=== PATIENT | male | born 1950 | race Caucasian/White ===

== ENCOUNTER → 2018-07-29 | Outpatient (CLI) | payer MEDICARE, OTHER ==
--- NOTE | 2018-07-29 12:24 | RAD ---
Ultrasound abdomen complete 07/29/2018 Clinical indications: Gastric pain. COMPARISON: None. FINDINGS: Visualized upper abdominal aorta and IVC unremarkable. Visualized proximal pancreas unremarkable. Gallbladder is normal in size and configuration without wall thickening, pericholecystic fluid or cholelithiasis. No intra or extrahepatic biliary ductal dilatation with the common bile duct measuring 3 mm. The liver is homogeneous in echotexture without discrete mass or fluid collection in the visualized portions. Right kidney measures 10.4 cm in length without hydronephrosis or abnormal perinephric fluid collection. The left kidney measures 10.5 cm in length without hydronephrosis or abnormal perinephric fluid collection. Spleen is normal in size measuring 10.3 cm in length. IMPRESSION: Unremarkable abdominal sonogram. Electronically signed by: Curtis Zhao MD (07/29/2018 12:20 PM) [facility]
== END | disposition home or self-care (01) ==
LOC: US 09:15
PROVIDERS: ATTEND Internal Medicine Gastroenterology
DX: R10.13 Epigastric pain (principal)
CPT/HCPCS: 76700

== ENCOUNTER 2018-08-06 02:14 | Inpatient (IN) | payer MEDICARE, OTHER ==
[~2018-08-06] VITALS: Ht 182.9 cm; Wt 101.7 kg
[2018-08-06] MEDS ORDERED: ASPIRIN 81 MG TAB.CHEW PO ONE (03:00)
--- NOTE | 2018-08-06 03:07 | PHYS DOC ---
Past History Past Medical History: GERD, Hypertension, Other Past Surgical History: Knee Replacement, Other Alcohol Use: Occasionally Drug Use: None Adult General Chief Complaint Chief Complaint: CHEST PAIN HPI HPI 68-year-old male presents via EMS with epigastric pain. The patient has had intermittent episodes of sharp epigastric pain for several weeks. He presents tonight because he started of epigastric pain after drinking some water yesterday around 2 PM. The pain has not stopped since and is currently 8/10 and sharp. Patient has had multiple esophageal dilations, the latest one in March. He is also reported of a hiatal hernia for which he takes Protonix. Patient was seen at [facility] a couple weeks ago and his cardiac workup at that time was negative. No definitive diagnosis for his pain was found but it improved after pain medication and did not come back. Patient denies shortness of breath or diaphoresis. He has a feeling of fullness and does not want to eat. He denies fever or chills. Review of Systems Review of Systems Constitutional: Denies fever or chills [] Eyes: Denies change in visual acuity, redness, or eye pain [] HENT: Denies nasal congestion or sore throat [] Respiratory: Denies cough or shortness of breath [] Cardiovascular: No additional information not addressed in HPI [] GI: Epigastric pain. Denies nausea, vomiting, bloody stools or diarrhea [] : Denies dysuria or hematuria [] Musculoskeletal: Denies back pain or joint pain [] Integument: Denies rash or skin lesions [] Neurologic: Denies headache, focal weakness or sensory changes [] Endocrine: Denies polyuria or polydipsia [] All other systems were reviewed and found to be within normal limits, except as documented in this note. Current Medications Current Medications Current Medications Medications (Trade) Dose Ordered Sig/Maddie Start Time Stop Time Status Last Admin Dose Admin Aspirin (Children'S Aspirin) 324 mg 1X ONCE 08/06/18 03:00 08/06/18 03:00 DC Multi-Ingredient Mouthwash/Gargle (Gi Cocktail) 20 ml 1X ONCE 08/06/18 03:00 08/06/18 03:01 UNV Ondansetron HCl (Zofran) 4 mg 1X ONCE 08/06/18 03:00 08/06/18 03:01 UNV Allergies Allergies Allergies Coded Allergies Type Severity Reaction Last Updated Verified No Known Drug Allergies 08/06/18 No Physical Exam Physical Exam Constitutional: Well developed, well nourished, no acute distress, non-toxic appearance. [] HENT: Normocephalic, atraumatic, bilateral external ears normal, oropharynx moist, no oral exudates, nose normal. [] Eyes: PERRLA, EOMI, conjunctiva normal, no discharge. [] Neck: Normal range of motion, no tenderness, supple, no stridor. [] Cardiovascular:Heart rate regular rhythm, no murmur [] Lungs & Thorax: Bilateral breath sounds clear to auscultation [] Abdomen: Bowel sounds normal, soft, moderate epigastric tenderness, no masses, no pulsatile masses. [] Skin: Warm, dry, no erythema, no rash. [] Back: No tenderness, no CVA tenderness. [] Extremities: No tenderness, no cyanosis, no clubbing, ROM intact, no edema. [] Neurologic: Alert and oriented X 3, normal motor function, normal sensory function, no focal deficits noted. [] Psychologic: Affect normal, judgement normal, mood normal. [] Current Patient Data Vital Signs Vital Signs Date Time Temp Pulse Resp B/P (MAP) Pulse Ox O2 Delivery O2 Flow Rate FiO2 08/06/18 02:24 98.2 72 18 97 Room Air EKG EKG Sinus rhythm, rate 72, normal axis, no ST elevations or depressions.[] Radiology/Procedures Radiology/Procedures [] Impressions: EXAM: CHEST 1 VIEW. HISTORY: Chest pain. COMPARISON: None. FINDINGS: A frontal view of the chest is obtained. There are no confluent infiltrates. There is no pneumothorax or pleural effusion. The heart is not enlarged. There is a large hiatal hernia. IMPRESSION: 1. Large hiatal hernia. No confluent infiltrates. Electronically signed by: Valeria Pemberton MD (08/06/2018 3:44 AM) [facility] DICTATED AND SIGNED BY: KAYLEE PEMBERTON MD DATE: 08/06/18 0326 CC: FRANCK OKEEFE DO; JEF CATALAN MD EXAM: CT ABDOMEN/PELVIS WITH CONTRAST. HISTORY: Epigastric pain, hiatal hernia. TECHNIQUE: Computed tomography of the abdomen and pelvis was performed after the intravenous administration of iodinated contrast. COMPARISON: None. FINDINGS: Lung windows through the visualized portions of the bases reveal mild atelectasis. There are atherosclerotic calcifications of the coronary arteries. Bone windows reveal no suspicious lesions. There is a large and paraesophageal hiatal hernia. There is associated gastric volvulus. The intermediate portion of the stomach below the diaphragm is moderately distended. There is no pneumatosis. The liver, gallbladder, spleen, adrenal glands, pancreas and kidneys are unremarkable. There are no pathologically enlarged lymph nodes. Left colonic diverticulosis is mild. The appendix is not inflamed. There is no small bowel obstruction. There are multiple small bladder diverticula and some bladder wall thickening. The prostate is mildly enlarged. IMPRESSION: 1. Paraesophageal hiatal hernia. There is gastric volvulus and the intermediate portion of the stomach is dilated consistent with a component of obstruction. Ongoing management is recommended. 2. Bladder wall thickening. Correlate with urinalysis. Multiple small bladder diverticula. These findings were called to Dr. Okeefe by Ed Pemberton on 08/06/2018 at 4:57 AM. *One or more of the following individualized dose reduction techniques were utilized for this examination: 1. Automated exposure control. 2. Adjustment of the mA and/or kV according to patient size. 3. Use of iterative reconstruction technique. Electronically signed by: Valeria Pemberton MD (08/06/2018 4:57 AM) [facility] DICTATED AND SIGNED BY: KAYLEE PEMBERTON MD DATE: 08/06/18 0423 CC: FRANCK OKEEFE DO; RAUL GAMBOA MD; PCP,UNKNOWN Course & Med Decision Making Course & Med Decision Making Pertinent Labs and Imaging studies reviewed. (See chart for details) The patient had an abdominal ultrasound on July 29 at this facility that was unremarkable. The patient's troponin is elevated at 0.07. His EKG does not show elevations. I discussed with the patient that he should be admitted for rule out and possible stress test tomorrow. His HEART score is 5. He is in agreement with this plan. After the patient was admitted, radiology called and states that the patient's hiatal hernia is quite severe and can be classified as gastric volvulus. At some point should be evaluated by a surgeon. Given his current cardiac risk, he will need to be ruled out and have a more complete cardiac workup prior to consideration of surgery. I discussed the patient with Dr. Gamboa and he has accepted the patient for admission. [] Dragon Disclaimer Dragon Disclaimer This electronic medical record was generated, in whole or in part, using a voice recognition dictation system. Departure Departure: Impression: Primary Impression: Chest pain Additional Impressions: Elevated troponin I level Hiatal hernia Disposition: ADMITTED INPATIENT Condition: STABLE Referrals: JEF CATALAN MD (PCP) Problem Qualifiers Primary Impression: Chest pain Chest pain type: precordial pain Qualified Codes: R07.2 - Precordial pain FRANCK OKEEFE DO Aug 06, 2018 03:06
[2018-08-06] MEDS ORDERED: LIDO:MAALOX 1:1 20 ML SINGLE DOSE. PO ONE (03:15)
[2018-08-06] MEDS ORDERED: ONDANSETRON PF 4 MG/2 ML VIAL. IV ONE (03:15)
[2018-08-06 03:24] LABS: BASO # 0.1 x10^3/uL (0.0-0.2); BASO % 1 % (0-3); EOS # 0.2 x10^3/uL (0.0-0.7); EOS % 2 % (0-3); HEMATOCRIT 45.2 % (39.0-53.0); HEMOGLOBIN 15.1 g/dL (13.0-17.5); LYMPH # 2.2 x10^3/uL (1.0-4.8); LYMPH % 23 % (24-48); MEAN CORPUSCULAR HEMOGLOBIN 29 pg (25-35); MEAN CORPUSCULAR HGB CONC 33 g/dL (31-37); MEAN CORPUSCULAR VOLUME 86 fL (79-100); MONO # 0.7 x10^3/uL (0.0-1.1); MONO % 7 % (0-9); NEUT # 6.4 x10^3uL (1.8-7.7); NEUT % 67 % (31-73); PLATELET COUNT 334 x10^3/uL (140-400); RED BLOOD COUNT 5.24 x10^6/uL (4.30-5.70); WHITE BLOOD COUNT 9.6 x10^3/uL (4.0-11.0)
[2018-08-06] MEDS ORDERED: IOHEXOL 300 MG/ML 75 ML VIAL. IV ONE (03:30)
[2018-08-06] MEDS ORDERED: CONTRAST GIVEN MC PRN (03:45)
[2018-08-06 03:48] LABS: ALBUMIN 3.8 g/dL (3.4-5.0); CALCIUM 9.6 mg/dL (8.5-10.1); CREATININE 1.1 mg/dL (0.7-1.3); GFR 66.6; POTASSIUM 4.3 mmol/L (3.5-5.1); TOTAL BILIRUBIN 1.1 mg/dL (0.2-1.0); TOTAL PROTEIN 7.5 g/dL (6.4-8.2)
--- NOTE | 2018-08-06 03:49 | RAD ---
EXAM: CHEST 1 VIEW. HISTORY: Chest pain. COMPARISON: None. FINDINGS: A frontal view of the chest is obtained. There are no confluent infiltrates. There is no pneumothorax or pleural effusion. The heart is not enlarged. There is a large hiatal hernia. IMPRESSION: 1. Large hiatal hernia. No confluent infiltrates. Electronically signed by: Valeria Pemberton MD (08/06/2018 3:44 AM) [facility]
[2018-08-06] MEDS ORDERED: NITROGLYCERIN SUBLINGUAL 0.4 MG BOTTLE OF 25. SL PRN (04:15)
[2018-08-06] MEDS ORDERED: ONDANSETRON PF 4 MG/2 ML VIAL. IV PRN (04:15)
[2018-08-06] MEDS ORDERED: NITROGLYCERIN SUBLINGUAL 0.4 MG BOTTLE OF 25. SL ONE ×2 (04:15→04:22)
[2018-08-06] MEDS ORDERED: ASPI-864 PO (04:43)
[2018-08-06] MEDS ORDERED: PANT40TA5 PO (04:43)
[2018-08-06] MEDS ORDERED: CALC1TAB PO (04:43)
[2018-08-06] MEDS ORDERED: ROSU40TA4 PO (04:43)
[2018-08-06] MEDS ORDERED: TELM40TA4 PO (04:43)
--- NOTE | 2018-08-06 05:02 | RAD ---
EXAM: CT ABDOMEN/PELVIS WITH CONTRAST. HISTORY: Epigastric pain, hiatal hernia. TECHNIQUE: Computed tomography of the abdomen and pelvis was performed after the intravenous administration of iodinated contrast. COMPARISON: None. FINDINGS: Lung windows through the visualized portions of the bases reveal mild atelectasis. There are atherosclerotic calcifications of the coronary arteries. Bone windows reveal no suspicious lesions. There is a large and paraesophageal hiatal hernia. There is associated gastric volvulus. The intermediate portion of the stomach below the diaphragm is moderately distended. There is no pneumatosis. The liver, gallbladder, spleen, adrenal glands, pancreas and kidneys are unremarkable. There are no pathologically enlarged lymph nodes. Left colonic diverticulosis is mild. The appendix is not inflamed. There is no small bowel obstruction. There are multiple small bladder diverticula and some bladder wall thickening. The prostate is mildly enlarged. IMPRESSION: 1. Paraesophageal hiatal hernia. There is gastric volvulus and the intermediate portion of the stomach is dilated consistent with a component of obstruction. Ongoing management is recommended. 2. Bladder wall thickening. Correlate with urinalysis. Multiple small bladder diverticula. These findings were called to Dr. Yadav by Ed Pemberton on 08/06/2018 at 4:57 AM. *One or more of the following individualized dose reduction techniques were utilized for this examination: 1. Automated exposure control. 2. Adjustment of the mA and/or kV according to patient size. 3. Use of iterative reconstruction technique. Electronically signed by: Valeria Pemberton MD (08/06/2018 4:57 AM) [facility]
[2018-08-06 05:05] VITALS: BP 145/83
[2018-08-06] MEDS ORDERED: MULT1TAB52 PO (05:26)
--- NOTE | 2018-08-06 10:29 | PDOC2 ---
CONSULT Date of Admission DATE: 08/06/18 TIME: 10:28 Reason for Consult: elevated trop Problem List Problems Medical Problems: (1) Chest pain Status: Acute (2) Elevated troponin I level Status: Acute (3) Hiatal hernia Status: Acute History of Present Illness Mr Smyth is a 68 year old male who presented to the ED with complaints of epigastric pain. He has experienced sharp stabbing pain in the epigastric area off an on for several weeks. Yesterday he reports taking a drink of water and having sudden onset of severe stabbing pain. He does have a history of GERD and prior esophageal strictures and was recently evaluated by cardiology at though he did not undergo stress testing or echocardiography. He does have a history of stress testing and cardiac cath with reportedly moderate coronary disease. He was found to have haital hernia with gastric vovulus and admitted . Consult was called due to elevated troponin. The patient reports no complaints of chest pain. he does report some dyspnea on exertion with stairs. He works out at a gym 3 time weekly without issues. He reports he has reduced his cardio due to knee pain. He denies any congestive symptoms, claudication or syncope. He reports some neuropathy in his feet and that his toes occasionally become bluish in color but he underwent testing fo PAD at which was normal. He reports some bradycardia but denies any symptoms. He did have recurrent epigastric discomfort this am after breakfast but resolved with analgesics and currently comfortable. Past Medical History moderate coronary disease by prior cardiac cath per patient report hiatal hernia esophageal strictures s/p dilatations gerd hypertension hyperlipidemia osteoarthritis Musculoskeletal: Stiffness Past Surgical History: Tonsillectomy, Other (right foot/toe, right knee, left rotater cuff) Family History: Cancer, Coronary Artery Disease, Migranes Social History non smoker, no significant ETOH, no illicit drugs Current Medications Current Medications Aspirin (Children'S Aspirin) 324 mg 1X ONCE PO ; Start 08/06/18 at 03:00; Stop 08/06/18 at 03:00; Status DC Multi-Ingredient Mouthwash/Gargle (Gi Cocktail) 20 ml 1X ONCE PO Last administered on 08/06/18at 03:16; Start 08/06/18 at 03:15; Stop 08/06/18 at 03:16; Status DC Ondansetron HCl (Zofran) 4 mg 1X ONCE IV Last administered on 08/06/18at 03:16; Start 08/06/18 at 03:15; Stop 08/06/18 at 03:16; Status DC Iohexol (Omnipaque 300 Mg/ml) 75 ml 1X ONCE IV Last administered on 08/06/18at 03:53; Start 08/06/18 at 03:30; Stop 08/06/18 at 03:31; Status DC Info (Do NOT chart on this entry -- for MONITORING) 1 each PRN DAILY PRN MC SEE COMMENTS; Start 08/06/18 at 03:45; Stop 08/08/18 at 03:44 Nitroglycerin (Nitrostat) 0.4 mg 1X ONCE SL Last administered on 08/06/18at 04: 30; Start 08/06/18 at 04:15; Stop 08/06/18 at 04:32; Status DC Fentanyl Citrate (Fentanyl 2ml Vial) 75 mcg 1X ONCE IV Last administered on 08/06/18at 04:30; Start 08/06/18 at 04:15; Stop 08/06/18 at 04:32; Status DC Ondansetron HCl (Zofran) 4 mg PRN Q4HRS PRN IV NAUSEA/VOMITING; Start 08/06/18 at 04:15; Stop 08/07/18 at 04:14 Fentanyl Citrate (Fentanyl 2ml Vial) 50 mcg PRN Q2HR PRN IV PAIN; Start at 04:15; Stop 08/07/18 at 04:14 Nitroglycerin (Nitrostat) 0.4 mg PRN Q5MIN PRN SL CHEST PAIN; Start 08/06/18 at 04:15; Stop 08/07/18 at 04:14 Active Scripts Active Reported Multivitamins (Multivitamin) 1 Each Tablet 1 Tab PO DAILY LAST DOSE GIVEN: DATE: TIME: NEXT DOSE DUE: DATE: TIME: Oyster Shell 500 Mg + Vit D Tb (Calcium Carbonate/Vitamin D3) 1 Each Tablet 1 Tab PO BID LAST DOSE GIVEN: DATE: TIME: NEXT DOSE DUE: DATE: TIME: Crestor (Rosuvastatin Calcium) 40 Mg Tablet 40 Mg PO HS LAST DOSE GIVEN: DATE: TIME: NEXT DOSE DUE: DATE: TIME: Pantoprazole Sodium 40 Mg Tablet.dr 40 Mg PO DAILY LAST DOSE GIVEN: DATE: TIME: NEXT DOSE DUE: DATE: TIME: Telmisartan 40 Mg Tablet 40 Mg PO HS LAST DOSE GIVEN: DATE: TIME: NEXT DOSE DUE: DATE: TIME: Lo-Dose Aspirin Ec (Aspirin) 81 Mg Tablet.dr 81 Mg PO DAILY LAST DOSE GIVEN: DATE: TIME: NEXT DOSE DUE: DATE: TIME: Allergies: Coded Allergies: No Known Drug Allergies (Unverified , 08/06/18) Review of System as per HPI or negative General: Alert, Oriented X3, Cooperative, No acute distress HEENT: Atraumatic, EOMI, Mucous membr. moist/pink Lungs: Clear to auscultation, Normal air movement Heart: Regular rate, Normal S1, Normal S2, Other (no obvious murmurs, no gallops, clicks or rubs) Abdomen: Normal bowel sounds, Soft, No tenderness Extremities: No cyanosis, No edema, Normal pulses Neuro: Normal speech, Strength at 5/5 X4 ext Psych/Mental Status: Mental status NL, Mood NL VITALS Vital Signs Date Time Temp Pulse Resp B/P (MAP) Pulse Ox O2 Delivery O2 Flow Rate FiO2 08/06/18 07:55 Room Air 08/06/18 05:05 97.7 61 20 145/83 (103) 97 Labs Laboratory Tests Test 08/06/18 02:20 08/06/18 07:00 White Blood Count 9.6 x10^3/uL (4.0-11.0) Red Blood Count 5.24 x10^6/uL (4.30-5.70) Hemoglobin 15.1 g/dL (13.0-17.5) Hematocrit 45.2 % (39.0-53.0) Mean Corpuscular Volume 86 fL (79-100) Mean Corpuscular Hemoglobin 29 pg (25-35) Mean Corpuscular Hemoglobin Concent 33 g/dL (31-37) Red Cell Distribution Width 14.0 % (11.5-14.5) Platelet Count 334 x10^3/uL (140-400) Neutrophils (%) (Auto) 67 % (31-73) Lymphocytes (%) (Auto) 23 % (24-48) Monocytes (%) (Auto) 7 % (0-9) Eosinophils (%) (Auto) 2 % (0-3) Basophils (%) (Auto) 1 % (0-3) Neutrophils # (Auto) 6.4 x10^3uL (1.8-7.7) Lymphocytes # (Auto) 2.2 x10^3/uL (1.0-4.8) Monocytes # (Auto) 0.7 x10^3/uL (0.0-1.1) Eosinophils # (Auto) 0.2 x10^3/uL (0.0-0.7) Basophils # (Auto) 0.1 x10^3/uL (0.0-0.2) Sodium Level 140 mmol/L (136-145) Potassium Level 4.3 mmol/L (3.5-5.1) Chloride Level 102 mmol/L (98-107) Carbon Dioxide Level 24 mmol/L (21-32) Anion Gap 14 (6-14) Blood Urea Nitrogen 19 mg/dL (8-26) Creatinine 1.1 mg/dL (0.7-1.3) Estimated GFR (Cockcroft-Gault) 66.6 BUN/Creatinine Ratio 17 (6-20) Glucose Level 119 mg/dL (70-99) Calcium Level 9.6 mg/dL (8.5-10.1) Total Bilirubin 1.1 mg/dL (0.2-1.0) Aspartate Amino Transf (AST/SGOT) 24 U/L (15-37) Alanine Aminotransferase (ALT/SGPT) 28 U/L (16-63) Alkaline Phosphatase 107 U/L (46-116) Troponin I Quantitative 0.079 ng/mL (0-0.055) 0.078 ng/mL (0-0.055) Total Protein 7.5 g/dL (6.4-8.2) Albumin 3.8 g/dL (3.4-5.0) Albumin/Globulin Ratio 1.0 (1.0-1.7) Lipase 95 U/L (73-393) Images EKG - sinus rhythm, no acute abn CT abd/pelvis IMPRESSION: 1. Paraesophageal hiatal hernia. There is gastric volvulus and the intermediate portion of the stomach is dilated consistent with a component of obstruction. Ongoing management is recommended. 2. Bladder wall thickening. Correlate with urinalysis. Multiple small bladder diverticula. CXR - IMPRESSION: 1. Large hiatal hernia. No confluent infiltrates. Assessment/Plan 1. troponin elevation- minimal, likely type II, no ekg changes, no anginal symptoms. Check echo for lv function and wall motion. If echo wnl will classify as revised cardiac risk class III/moderate risk for cardiac events in non cardiac surgery. ASA only if ok with Sx. 2. gastric volvulus - transferring to [facility] for surgical evaluation. await sx recommendations. 3. CAD reportedly known moderate by prior cardiac cath several years ago. Check lipids and echo. Request records. 4. HTN - resume home antihypertensives /ARB 5. HLD - check lipids, resume crestor 6. bradycardia - asymptomatic. No beta blockers at this time. [employer] Aug 06, 2018 10:29
[2018-08-06 11:18] VITALS: BP 155/82
--- NOTE | 2018-08-06 11:33 | EKG ---
[address] [address] Test Date: 2018-08-06 Test Time: 02:24:26 Pat Name: TATIANA HUTCHINSON Department: Room: 119 A Gender: M [employer]or: : 1950 Requested By: FRANCK OKEEFE Order Number: [id number] Reading MD: Stephen Pool MD Measurements Intervals [place] Rate: 72 P: 45 HI: 158 QRS: 1 QRSD: 90 T: 28 QT: 462 QTc: 508 Interpretive Statements SINUS RHYTHM Electronically Signed On 08-13-2018 8:45:23 [employer] WORK[employer] by Stephen Pool MD
== END 2018-08-06 11:50 | disposition short-term general hospital (02) | DRG 392 ==
LOC: ER 02:14 → 1 SOUTH 04:00
PROVIDERS: ADMIT Internal Medicine; ATTEND Internal Medicine
DX: K21.9 Gastro-esophageal reflux disease without esophagitis (principal); K31.89 Other diseases of stomach and duodenum; E78.5 Hyperlipidemia, unspecified; G62.9 Polyneuropathy, unspecified; I10 Essential (primary) hypertension; Z96.659 Presence of unspecified artificial knee joint; M19.90 Unspecified osteoarthritis, unspecified site; R00.1 Bradycardia, unspecified; K44.9 Diaphragmatic hernia without obstruction or gangrene; I25.10 Atherosclerotic heart disease of native coronary artery without angina pectoris; Z79.899 Other long term (current) drug therapy; Z82.49 Family history of ischemic heart disease and other diseases of the circulatory system
CPT/HCPCS: 36415; 71045; 74177; 80053; 80061; 83690; 84484; 85025; 93005; 96374; 96375; J2405; J3010; Q9967; 99285-25

== ENCOUNTER 2020-09-16 08:17 | Emergency (ER) | payer MEDICARE, OTHER ==
[~2020-09-16] VITALS: Ht 182.9 cm; Wt 99.0 kg
[~2020-09-16 08:17] MED LIST: ASPI-967 PO; CALC1TAB PO; MULT-445 PO; PANT40TA6 PO; ROSU40TA4 PO; TELM40TA7 PO
[2020-09-16 08:20] VITALS: BP 139/91
--- NOTE | 2020-09-16 08:54 | PHYS DOC ---
Past History Past Medical History: Cancer, GERD, Hypertension, Other Additional Past Medical Histor: Skin cancer Past Surgical History: Knee Replacement, Other Additional Past Surgical Histo: Skin graft to nose for CA Alcohol Use: Occasionally Drug Use: None Adult General Chief Complaint Chief Complaint: ALLERGIC REACTION HPI HPI Patient is a pleasant 70-year-old male presenting with periorbital edema. Onset was noticed yesterday without any known inciting event or trauma. Patient has been putting Aquaphor on lesion which has helped. Nothing known makes worse. Patient denies any pain whatsoever, no other signs of angioedema or anaphylaxis. States he is using 5-FU cream prescribed by [employer] for skin cancer and is currently on day 13 of treatment. He called his [employer] yesterday and was advised to immediately discontinue medication as it could be a cause of his symptoms. Patient reports this morning for continued periorbital edema, does admit his has improved since discontinuing 5-FU cream yesterday. No fever, no airway involvement or trouble swallowing past baseline, no shortness of breath. He has never had anaphylaxis in the past. He does have underlying thyroid disease, states he takes Synthroid with last dose change approximately 2 months ago, he is due for repeat labs in 2 weeks Review of Systems Review of Systems Fourteen body systems of review of systems have been reviewed. See HPI for pertinent positives and negative responses, other munson all other systems are negative, non-pertinent or non-contributory Allergies Allergies Allergies Coded Allergies Type Severity Reaction Last Updated Verified ezetimibe Allergy Unknown 09/16/20 Yes lisinopril Allergy Unknown 09/16/20 Yes Physical Exam Physical Exam Constitutional: Well developed, well nourished, no acute distress, non-toxic appearance. HENT: Normocephalic, atraumatic, bilateral external ears normal, oropharynx dry and patent, no oral exudates, nose normal. Eyes: PERRLA, EOMI, conjunctiva normal, no discharge. Patient has periorbital edema present right orbit worse than left Neck: Normal range of motion, no tenderness, supple, no stridor. Cardiovascular: Heart rate regular, sinus rhythm, no murmurs rubs or gallops Lungs & Thorax: Bilateral breath sounds clear to auscultation Abdomen: Bowel sounds normal, soft, no tenderness, no masses, no pulsatile masses. Nonsurgical abdomen, no peritoneal signs Skin: Warm, dry, face is erythematous with red rash consistent with 5-FU cream use. Patient has scaling and yellow exudate on forehead which is chronic per patient. Back: No tenderness, no CVA tenderness. Extremities: No tenderness, no cyanosis, no clubbing, ROM intact, no edema. Neurologic: Alert and oriented X 3, grossly normal motor & sensory function, no focal deficits noted. Psychologic: Affect normal, judgement normal, mood normal. Current Patient Data Vital Signs Vital Signs Date Time Temp Pulse Resp B/P (MAP) Pulse Ox O2 Delivery O2 Flow Rate FiO2 09/16/20 08:20 97.8 65 16 139/91 (107) 99 EKG EKG [] Radiology/Procedures Radiology/Procedures [] Heart Score C/O Chest Pain: No Risk Factors: Risk Factors: DM, Current or recent (<one month) smoker, HTN, HLP, family history of CAD, obesity. Risk Scores: Risk Factors: DM, Current or recent (<one month) smoker, HTN, HLP, family history of CAD, obesity. Course & Med Decision Making Course & Med Decision Making Hemodynamically stable patient with history and physical exam consistent with nonemergent periorbital edema Discussed little utility in further diagnostic work-up in ER setting I agree that patient should discontinue 5-FU cream use until further notice. Continued supportive care practices advised. I advised patient contact PCP to try and get TSH drawn this upcoming week given that it has been greater than 6 weeks since last dose change without reevaluation of TSH levels Strict return precautions discussed with good understanding by patient, all questions and concerns addressed prior to ER departure in stable condition Dragon Disclaimer Dragjhoan Disclaimer This electronic medical record was generated, in whole or in part, using a voice recognition dictation system. Departure Departure: Impression: Primary Impression: Periorbital edema of both eyes Disposition: 01 DC HOME SELF CARE/HOMELESS Condition: STABLE Referrals: GABRIEL LAST MD (PCP) Additional Instructions: As discussed prior to ER departure, you are likely suffering from periorbital e tyrone. This is likely due to either 5-FU dermatology cream being applied to close to your eye and causing a contact dermatitis or underlying thyroid disease that is due for recheck. As discussed, please discontinue 5-FU treatment until you have followed up with your [employer]. Please continue warm compresses to bilateral eyes. Your condition has improved in last 24 hours with supportive care and should continue to do so on discharge home. If any concerning signs or symptoms present prior to outpatient follow-up please do not hesitate to come back for repeat evaluation. It was a pleasure to take care of you and I wish you the best going forward LUISITO BOYLE DO Sep 16, 2020 08:54
== END 2020-09-16 08:55 | disposition home or self-care (01) ==
LOC: ER 08:17
DX: H57.89 Other specified disorders of eye and adnexa (principal); R60.0 Localized edema; I10 Essential (primary) hypertension; K21.9 Gastro-esophageal reflux disease without esophagitis; Z85.828 Personal history of other malignant neoplasm of skin; Z98.890 Other specified postprocedural states; Z88.8 Allergy status to other drugs, medicaments and biological substances
CPT/HCPCS: 99281